=== PATIENT | male | born 1945 | race Caucasian/White ===

== ENCOUNTER 2021-07-18 09:11 | Day surgery (SDC) | payer MEDICARE, OTHER, SELFPAY ==
[2021-07-18] VITALS (7 sets, daily range): BP systolic 78–130; BP diastolic 47–114; PULSE 50–65; RESP 14–16; TEMP 35.7–36.8; O2SAT 98–100; BMI 25.6
--- NOTE | 2021-07-18 09:48 | HP.PCM_ITS ---
History and Physical Date of Admission: 07/18/21 75 M who presents to the office today for further evaluation of abdominal pain. He has been having abdominal pain intermittently over the last several years. Initially was thought to be secondary to gastritis as he was treated with omeprazole and dicyclomine therapy. His daily usage of dicyclomine is once a day at this time. He weaned himself off of omeprazole. He does take Xanax 0.25 mg twice a day for possible anxiety associated with with his abdominal pain. He does also admit to drinking couple beers a day. He does not take any Xanax with his alcohol consumption. He does not think he has a problem with alcohol. His weight has been stable. He does have history of adenomatous polyps and would like to get a colonoscopy. He denies any chest pain or shortness of breath. He has no family history of any GI related malignancies. Referred by PCP. For many years he has been having issues with generalized abdominal pain that occurs intermittently and suddenly noted to be sharp and lasts for many hours. Feels he has more issues during the winter. Previously told he has sludge in his gallbladder. Reports anxiety and panic attacks originally occurring 3-4 times a day, taking 0.25mg Xanax twice a day. When he takes Xanax pain goes away. PCP also given omeprazole and dicyclomine which he finds helpful. States that if he drinks a beer he feels better. Drinks thee beers a day as a daily average with most being 5. Denies being told he has issues with his pancreas and liver. ROS Gastro GI: Positive for abdominal pain Exam Const General: cooperative and comfortable Nutritional Appearance: average body habitus and well nourished [facility] Head: normal to inspection Ears: hearing grossly normal bilaterally Nose: external nose normal Face and sinus: normal facial exam Mouth: oral mucosae normal Throat: posterior oropharynx normal Eyes General: appearance normal, both eyes and all related structures Neck Neck: normal visual inspection Chest Chest palpation & inspection: normal inspection of the chest and normal palpation of entire chest wall Resp Effort & Inspection: normal respiratory effort Auscultation: Bilateral: Clear to Auscultation Cardio Palpation: normal PMI Rate: regular rate Rhythm: regular rhythm GI Inspection: normal to inspection Auscultation: normal bowel sounds Percussion: normal to percussion Palpation: no hepatosplenomegaly Skin General: no rashes or lesions noted Neuro General: patient alert Extrem General: normal to inspection Psych Affect: normal affect Assessment and Plan Assessment and Plan (1) Abdominal pain: Status: Acute Plan: Patient will undergo an upper endoscopy to evaluate his upper GI tract. He will also get a CT scan abdomen pelvis to look for signs of chronic pancreatitis. He was explained alternatives, risk, benefits including not withstanding bleeding, infection, sepsis, perforation, need for emergency or . He will have a ASA 1 (2) Personal history of colonic polyps: Status: Acute Plan: Patient will undergo colonoscopy when he has his upper endoscopy. He was explained alternatives, risk, benefits including not withstanding bleeding, infection, sepsis, perforation, need for emergent radiotherapy with an ASA of 1. I have re-examined the patient. There are no clinical changes since date of exam.
--- NOTE | 2021-07-18 10:30 | IMM_PTH ---
PATIENT: LARRY AUSTIN LOC: EN U#:[id number] AGE/SX: 75/M ROOM: RE07/18/[address]: Dr. Neri Wolff DO : 1945 BED: DIS: 07/18/2021 SPEC #: [id number] RECD: 07/18/21 13:32 STATUS: GUSTAVO REMg #: [id number] APOLONIA: 07/18/21 10:[address]: Neri Wolff DEPT: IMMUNOHISTOCHEMISTRY RECD BY: Milly Holley ENTERED: 07/18/21 13:33 SP TYPE: IMMUNO OTHR DR: Dr. Curtis Jara MD Tissues: B - Stomach, NOS C - Esophagus, NOS Procedures: H Pylori (initial) P53 (initial) KI-67 (add) PHYSICIAN & INSTITUTION [place] [id number] SPECIMEN INFORMATION: Tissue Source: B ? Gastric antrum, C ? Distal esophagus Clinical Info: History of colonic polyps Specimen Number: [id number] B & C CPT code: 56414 x2, 65460 METHODOLOGY: Deparaffinized sections of prefer/formalin-fixed tissue or PAP/DQ stained slides are incubated with monoclonal/polyclonal antibodies/oligonucleotide probes. Localization is made via biotin free immunoperoxidase method. Appropriate controls are performed and reacted as expected. Results on target cell population are indicated in the following table: RESULTS: ANTIBODY / CLONE RESULT Block B H Pylori (polyclonal) negative Block C P53 (DO-7) Ki-67 (30-9) These tests were developed and their performance characteristics determined by [facility]. They may not have been cleared or approved by the U.S. Food and Drug Administration. The FDA has determined that such clearance or approval is not necessary. The above immunohistochemical/dualISH markers are ordered and reviewed by the Pathologist. INTERPRETATION: B. Gastric antrum, biopsy: Negative for Helicobacter pylori organisms. C. Distal esophagus, biopsy: AM:zoila 07/19/2021
--- NOTE | 2021-07-18 10:30 | IMM_PTH ---
PATIENT: LARRY AUSTIN LOC: EN U#:[id number] AGE/SX: 75/M ROOM: RE07/18/[address]: Dr. Neri Wolff DO : 1945 BED: DIS: 07/18/2021 SPEC #: [id number] RECD: 07/18/21 13:32 STATUS: GUSTAVO REMg #: [id number] APOLONIA: 07/18/21 10:[address]: Neri Wolff DEPT: IMMUNOHISTOCHEMISTRY RECD BY: Milly Holley ENTERED: 07/18/21 13:33 SP TYPE: IMMUNO OTHR DR: Dr. Curtis Jara MD Tissues: B - Stomach, NOS C - Esophagus, NOS Procedures: H Pylori (initial) P53 (initial) KI-67 (add) PHYSICIAN & INSTITUTION [place] [id number] SPECIMEN INFORMATION: Tissue Source: B ? Gastric antrum, C ? Distal esophagus Clinical Info: History of colonic polyps Specimen Number: [id number] B & C CPT code: 92930 x2, 47887 METHODOLOGY: Deparaffinized sections of prefer/formalin-fixed tissue or PAP/DQ stained slides are incubated with monoclonal/polyclonal antibodies/oligonucleotide probes. Localization is made via biotin free immunoperoxidase method. Appropriate controls are performed and reacted as expected. Results on target cell population are indicated in the following table: RESULTS: ANTIBODY / CLONE RESULT Block B H Pylori (polyclonal) negative Block C P53 (DO-7) negative Ki-67 (30-9) positive, low These tests were developed and their performance characteristics determined by [facility]. They may not have been cleared or approved by the U.S. Food and Drug Administration. The FDA has determined that such clearance or approval is not necessary. The above immunohistochemical/dualISH markers are ordered and reviewed by the Pathologist. INTERPRETATION: B. Gastric antrum, biopsy: Negative for Helicobacter pylori organisms. C. Distal esophagus, biopsy: No evidence of dysplasia. AM:zoila 07/20/2021
--- NOTE | 2021-07-18 10:30 | EGD_PTH ---
PATIENT: LARRY AUSTIN LOC: EN U#:[id number] AGE/SX: 75/M ROOM: RE07/18/[address]: Dr. Neri Wolff DO : 1945 BED: DIS: 07/18/2021 SPEC #: [id number] RECD: 07/18/21 12:46 STATUS: GUSTAVO REMg #: [id number] APOLONIA: 07/18/21 10:[address]: Neri Wolff DEPT: SURGICAL PATHOLOGY RECD BY: Dora Garcia ENTERED: 07/18/21 13:09 SP TYPE: EGD BIOPSY [facility] DR: Dr. Curtis Jara MD Tissues: A - Duodenum, NOS B - Gastric mucous membrane C - Esophagus, NOS D - Rectum, NOS Procedures: Surgery Specimen Level IV HEADER OPERATION: Colonoscopy, EGD ([facility]) PRE-OP DIAGNOSIS: History of colonic polyps TISSUE SUBMITTED: A ? Duodenal biopsy, B ? Gastric antrum biopsy, C ? Distal esophagus biopsy, D ? Rectal polyp MICROSCOPIC DIAGNOSIS A. Duodenum, biopsy: No pathologic change. B. Gastric antrum, biopsy: Chronic gastritis. C. Distal esophagus, biopsy: Gastroesophageal junctional mucosa with mild chronic inflammation and focal goblet cell metaplasia. No evidence of dysplasia. See comment. D. Rectal polyp, biopsy: Hyperplastic polyp. AM:zoila 07/19/2021 COMMENT B. The results of immunohistochemistry for Helicobacter pylori will be reported separately ([id number]). C. Immunohistochemistry ([id number]) for P53 and Ki-67 will be performed and results will be reported separately. MICROSCOPIC DESCRIPTION Slides are reviewed. GROSS DESCRIPTION A - Received in fixative is one container labeled with the patient's name and designated duodenal biopsy. The specimen consists of multiple irregular fragments of light brown soft tissue that in aggregate measure 1.2 x 0.4 x 0.1 cm. The specimen is totally submitted in one cassette. B - Received in fixative is one container labeled with the patient's name and designated gastric antrum biopsy. The specimen consists of two irregular fragments of light brown soft tissue that in aggregate measure 0.6 x 0.3 x 0.1 cm. The specimen is totally submitted in one cassette. C - Received in fixative is one container labeled with the patient's name and designated distal esophagus biopsy. The specimen consists of multiple irregular fragments of light brown soft tissue that in aggregate measure 0.5 x 0.3 x 0.1 cm. The specimen is totally submitted in one cassette. D - Received in fixative is one container labeled with the patient's name and designated rectal polyp. The specimen consists of two irregular fragments of light brown soft tissue that in aggregate measure 0.4 x 0.3 x 0.1 cm. The specimen is totally submitted in one cassette. / SJ:rg 07/18/2021 TC:3 CPT: 64402 x4
[2021-07-18] MEDS: Lactated Ringers 1,000 ML 15 ML IV (10:39)
--- NOTE | 2021-07-18 11:02 | OP.EGD_ITS ---
Patient Name: Andrés Johnson Procedure Date: 07/18/2021 10:06 AM Date of : 1945 Age: 75 Procedure: Upper GI endoscopy Indications: Epigastric abdominal pain Providers: Neri Wolff DO Medicines: See the Anesthesia note for documentation of the administered medications Patient Profile: This is a 75 year old male. Refer to note in patient chart for documentation of history and physical. Patient has symptoms. Complications: No immediate complications. Procedure: Pre-Anesthesia Assessment: - Prior to the procedure, a History and Physical was performed, and patient medications and allergies were reviewed. The patient is competent. The risks and benefits of the procedure and the sedation options and risks were discussed with the patient. All questions were answered and informed consent was obtained. Patient identification and proposed procedure were verified by the physician in the pre-procedure area. Mental Status Examination: alert and oriented. Airway Examination: normal oropharyngeal airway and neck mobility. Respiratory Examination: clear to auscultation. CV Examination: normal. Prophylactic Antibiotics: The patient does not require prophylactic antibiotics. Prior Anticoagulants: The patient has taken no previous anticoagulant or antiplatelet agents. After reviewing the risks and benefits, the patient was deemed in satisfactory condition to undergo the procedure. The anesthesia plan was to use moderate sedation / analgesia (conscious sedation). Immediately prior to administration of medications, the patient was re-assessed for adequacy to receive sedatives. The heart rate, respiratory rate, oxygen saturations, blood pressure, adequacy of pulmonary ventilation, and response to care were monitored throughout the procedure. The physical status of the patient was re-assessed after the procedure. After obtaining informed consent, the endoscope was passed under direct vision. Throughout the procedure, the patient's blood pressure, pulse, and oxygen saturations were monitored continuously. The Colonoscope was introduced through the mouth, and advanced to the second part of duodenum. The upper GI endoscopy was accomplished without difficulty. The patient tolerated the procedure well. Moderate Sedation: Moderate (conscious) sedation was administered by the endoscopy nurse and supervised by the endoscopist. The following parameters were monitored: oxygen saturation, heart rate, blood pressure, and response to care. Total physician intraservice time was 15 minutes. Scope In: 10:20:17 AM Scope Out: 10:27:18 AM Total Procedure Duration Time 0 hours 7 minutes 1 second Findings: LA Grade A (one or more mucosal breaks less than 5 mm, not extending between tops of 2 mucosal folds) esophagitis with no bleeding was found 38 to 40 cm from the incisors. Biopsies were taken with a cold forceps for histology. Verification of patient identification for the specimen was done. Estimated blood loss was minimal. 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 Patchy mildly erythematous mucosa without bleeding was found in the gastric antrum. Biopsies were taken with a cold forceps for histology. Verification of patient identification for the specimen was done. Estimated blood loss was minimal. Patchy mildly erythematous mucosa without active bleeding and with no stigmata of bleeding was found in the first portion of the duodenum. Biopsies were taken with a cold forceps for histology. Verification of patient identification for the specimen was done. Estimated blood loss was minimal. Impression: - LA Grade A reflux esophagitis. Biopsied. - Erythematous mucosa in the antrum. Biopsied. - Erythematous duodenopathy. Biopsied. Recommendation: - Discharge patient to home. - Resume previous diet. - Continue present medications. - Await pathology results. Procedure Code(s): --- Professional --- 55068, Esophagogastroduodenoscopy, flexible, transoral; with biopsy, single or multiple 62195, 59, Moderate sedation services provided by the same physician or other qualified health managed care nurse performing the diagnostic or therapeutic service that the sedation supports, requiring the presence of an independent trained observer to assist in the monitoring of the patient's level of consciousness and physiological status; initial 15 minutes of intraservice time, patient age 5 years or older CPT copyright 2017 [employer]. All rights reserved. The codes documented in this report are preliminary and upon medical billing coder review may be revised to meet current compliance requirements. Neri Wolff DO 07/18/2021 11:01:43 AM This report has been signed electronically. Number of Addenda: 1 Note Initiated On: 07/18/2021 10:06 AM Addendum Number: 1 Addendum Date: 01/05/2022 6:40:59 AM MAC was used as sedation for this procedure. Neri Wolff DO 01/05/2022 6:41:06 AM This report has been signed electronically.
--- NOTE | 2021-07-18 11:05 | OP.COLON_ITS ---
Patient Name: Andrés Johnson Procedure Date: 07/18/2021 10:27 AM Date of : 1945 Age: 75 Procedure: Colonoscopy Indications: Follow-up for history of adenomatous polyps in the colon Providers: Neri Wolff DO Medicines: See the Anesthesia note for documentation of the administered medications Patient Profile: This is a 75 year old male. Refer to note in patient chart for documentation of history and physical. Patient has symptoms. Last Colonoscopy: 5 years ago. Complications: No immediate complications. Procedure: Pre-Anesthesia Assessment: - Prior to the procedure, a History and Physical was performed, and patient medications and allergies were reviewed. The patient is competent. The risks and benefits of the procedure and the sedation options and risks were discussed with the patient. All questions were answered and informed consent was obtained. Patient identification and proposed procedure were verified by the physician in the pre-procedure area. Mental Status Examination: alert and oriented. Airway Examination: normal oropharyngeal airway and neck mobility. Respiratory Examination: clear to auscultation. CV Examination: normal. Prophylactic Antibiotics: The patient does not require prophylactic antibiotics. Prior Anticoagulants: The patient has taken no previous anticoagulant or antiplatelet agents. After reviewing the risks and benefits, the patient was deemed in satisfactory condition to undergo the procedure. The anesthesia plan was to use moderate sedation / analgesia (conscious sedation). Immediately prior to administration of medications, the patient was re-assessed for adequacy to receive sedatives. The heart rate, respiratory rate, oxygen saturations, blood pressure, adequacy of pulmonary ventilation, and response to care were monitored throughout the procedure. The physical status of the patient was re-assessed after the procedure. After I obtained informed consent, the scope was passed under direct vision. Throughout the procedure, the patient's blood pressure, pulse, and oxygen saturations were monitored continuously. The Colonoscope was introduced through the anus and advanced to the cecum, identified by appendiceal orifice and ileocecal valve. The colonoscopy was performed without difficulty. The patient tolerated the procedure well. The quality of the bowel preparation was good. Moderate Sedation: Moderate (conscious) sedation was administered by the endoscopy nurse and supervised by the endoscopist. The patient's oxygen saturation, heart rate, blood pressure and response to care were monitored. Total physician intraservice time was 15 minutes. Scope In: 10:30:46 AM Scope Withdrawal Time 0 hours 14 minutes 56 seconds Scope Out: 10:57:24 AM Total Procedure Duration Time 0 hours 26 minutes 38 seconds Findings: The perianal and digital rectal examinations were normal. A 4 mm polyp was found in the rectum. The polyp was sessile. The polyp was removed with a cold biopsy forceps. Resection and retrieval were complete. Verification of patient identification for the specimen was done. Estimated blood loss was minimal. A few small-mouthed diverticula were found in the recto-sigmoid colon and sigmoid colon. The exam was otherwise without abnormality on direct and retroflexion views. The was grade 1 internal hemorrhoids seen on retroflexion in the rectum. Impression: - One 4 mm polyp in the rectum, removed with a cold biopsy forceps. Resected and retrieved. - Diverticulosis in the recto-sigmoid colon and in the sigmoid colon. - The examination was otherwise normal on direct and retroflexion views. -Grade 1 internal hemorrhoids Recommendation: - Discharge patient to home. - Resume previous diet. - Continue present medications. - Await pathology results. - Repeat colonoscopy in 5 years for surveillance. - Return to GI office in 1 week. Procedure Code(s): --- Professional --- 17832, Colonoscopy, flexible; with biopsy, single or multiple 73577, 59, Moderate sedation services provided by the same physician or other qualified health animal care taker performing the diagnostic or therapeutic service that the sedation supports, requiring the presence of an independent trained observer to assist in the monitoring of the patient's level of consciousness and physiological status; initial 15 minutes of intraservice time, patient age 5 years or older CPT copyright 2017 [employer]. All rights reserved. The codes documented in this report are preliminary and upon dredge captain review may be revised to meet current compliance requirements. Neri Wolff DO 07/18/2021 11:05:02 AM This report has been signed electronically. Number of Addenda: 1 Note Initiated On: 07/18/2021 10:27 AM Addendum Number: 1 Addendum Date: 01/05/2022 6:41:15 AM MAC was used as sedation for this procedure. Neri Wolff DO 01/05/2022 6:41:19 AM This report has been signed electronically.
== END 2021-07-18 23:59 | disposition home or self-care (01) ==
LOC: EN 09:22 → AC 09:22
PROVIDERS: PCP Family Medicine; Referring Provider Internal Medicine Gastroenterology; Visit Provider Internal Medicine Gastroenterology
PROC: 0DJD8ZZ Inspection of Lower Intestinal Tract, Via Natural or Artificial Opening Endoscopic (ICD-10-PCS; CPT 45378; principal; 2021-07-18 10:25)
DX: K29.50 Unspecified chronic gastritis without bleeding (principal); K57.30 Diverticulosis of large intestine without perforation or abscess without bleeding; K21.00 Gastro-esophageal reflux disease with esophagitis, without bleeding; Z90.49 Acquired absence of other specified parts of digestive tract; K62.1 Rectal polyp; K64.0 First degree hemorrhoids; Z86.010 Personal history of colon polyps; F41.9 Anxiety disorder, unspecified; F32.A Depression, unspecified; G25.81 Restless legs syndrome; M19.90 Unspecified osteoarthritis, unspecified site; Z79.899 Other long term (current) drug therapy
CPT/HCPCS: 45380; 43239; 88305; 88341; 88342; J7120; J2405

== ENCOUNTER 2022-09-21 05:32 | Day surgery (SDC) | payer MEDICARE, OTHER, SELFPAY ==
[2022-09-21 06:01] VITALS: BP 141/79; PULSE 57; RESP 16; TEMP 36.1; O2SAT 100; BMI 25.9
[2022-09-21] MEDS: Lactated Ringers 1,000 ML 15 ML IV (06:14)
--- NOTE | 2022-09-21 07:00 | IMM_PTH ---
PATIENT: LARRY AUSTIN LOC: EN U#:[id number] AGE/SX: 76/M ROOM: RE09/21/[address]: Dr. Neri Wolff DO : 1945 BED: DIS: 09/21/2022 SPEC #: [id number] RECD: 09/21/22 12:18 STATUS: GUSTAVO REQ #: [id number] APOLONIA: 09/21/22 07:[address]: Neri Wolff DEPT: IMMUNOHISTOCHEMISTRY RECD BY: Milly Holley ENTERED: 09/21/22 12:18 SP TYPE: IMMUNO OTHR DR: Dr. Curtis Jara MD Tissues: B - Stomach, NOS Procedures: H Pylori (initial) PHYSICIAN & INSTITUTION [address] [id number] SPECIMEN INFORMATION: Tissue Source: B ? 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 Localization is made via biotin free immunoperoxidase method. Appropriate controls are performed and reacted as expected. Results on target cell population are indicated in the following table: RESULTS: ANTIBODY / CLONE RESULT Block B H Pylori (polyclonal) negative These tests were developed and their performance characteristics determined by [facility]. They may not have been cleared or approved by the U.S. Food and Drug Administration. The FDA has determined that such clearance or approval is not necessary. The above immunohistochemical/dualISH markers are ordered and reviewed by the Pathologist. INTERPRETATION: B. Gastric pylorus, biopsy: Negative for Helicobacter pylori organisms. SJ:zoila 09/22/2022
--- NOTE | 2022-09-21 07:00 | EGD_PTH ---
PATIENT: LARRY AUSTIN LOC: EN U#:[id number] AGE/SX: 76/M ROOM: RE09/21/[address]: Dr. Neri Wolff DO : 1945 BED: DIS: 09/21/2022 SPEC #: [id number] RECD: 09/21/22 09:43 STATUS: GUSTAVO REMg #: [id number] APOLONIA: 09/21/22 07:[address]: Neri Wolff DEPT: SURGICAL PATHOLOGY RECD BY: Abhijit Pollard ENTERED: 09/21/22 11:27 SP TYPE: EGD BIOPSY EMILY DR: Dr. Curtis Jara MD Tissues: A - Esophagus, NOS B - Pylorus Procedures: Special Stain Group II Surgery Specimen Level IV Alcian Blue/PAS (control) HEADER OPERATION: EGD ([facility]) with biopsies PRE-OP DIAGNOSIS: Hoff?s esophagus, irritable bowel syndrome TISSUE SUBMITTED: A ? Distal esophagus biopsy, B ? Gastric pylorus biopsy MICROSCOPIC DIAGNOSIS A. Distal esophagus, biopsy: Fragments of gastroesophageal mucosa with chronic inflammation. Intestinal metaplasia (goblet cell metaplasia) not identified. See comment. B. Gastric pylorus, biopsy: Mild gastritis. See microscopic description and comment. SJ:rg 09/22/2022 COMMENT A. Alcian blue/PAS stain with matched control is used in the evaluation of the specimen. B. The results of immunohistochemistry for Helicobacter pylori will be reported separately ([id number]). Alcian blue/PAS stain with matched control is used in the evaluation of the specimen. MICROSCOPIC DESCRIPTION Slides are reviewed. The specimen shows fragments of gastric mucosa with chronic inflammatory cell infiltrates in the lamina propria consisting of lymphocytes and plasma cells, consistent with mild chronic gastritis. Focal intestinal metaplasia (goblet cell metaplasia) is also noted. GROSS DESCRIPTION A - Received in fixative is one container labeled with the patient's name and designated distal esophagus. The specimen consists of multiple irregular fragments of light brown soft tissue that in aggregate measure 1.0 x 0.3 x 0.1 cm. The specimen is totally submitted in one cassette. B - Received in fixative is one container labeled with the patient's name and designated gastric pylorus biopsy. The specimen consists of multiple irregular fragments of light brown soft tissue that in aggregate measure 0.8 x 0.6 x 0.1 cm. The specimen is totally submitted in one cassette. / SJ:rg 09/21/2022 TC:3 CPT: 97647 x2, 01213 x2
--- NOTE | 2022-09-21 07:10 | PCM.HP.BLA ---
History and Physical Date of Admission: 09/21/22 LARRY AUSTIN, is a 76 M who presents to the office today for 6 month f/u Hoff's esophagus, IBS. He continues to take pantoprazole 40 mg daily, no adverse effects. His reflux wasn't symptomatic. He had inguinal hernia repair about 2 mos ago, bowels are better since then. He also started taking a refrigerated probiotic daily which also helps his bowels, no further abd pain. He quit snuff. Still drinks beer--about 3 per day. Hoff's esophagus/GERD -- He was identified as having short segment Hoff's esophagus on upper endoscopy 07/2021.?He was treated with pantoprazole 40 mg BID for 2 months and then transitioned to once daily therapy.?No heartburn, acid reflux, dysphagia, nausea, vomiting, abd pain, chest pain.? IBS --? He reports anxiety was causing his abd pain; pt explains the abd pain like a panic attack of the stomach. Dr Wolff had him try cymbalta for intestinal migraine but the med caused constipation and urinary retention so he stopped it after 8 days. Constipation and abd pain managed with daily probiotic. EGD and colonoscopy performed 07.18.21. EGD found LA Grade A reflux esophagitis; erythematous duodenopathy and antrum mucosa. Biopsy found gastritis; GE Junction inflammation with metaplasia and Ki-67 positive, no dysplasia. H.Pylori negative. Colonoscopy found one 4mm tubular adenoma polyp in rectum; diverticulosis of RS and sigmoid colons; Grade 1 internal hemorrhoids. Surveillance colonoscopy due 07/2026. ROS Const Constitutional: Positive for weight change; No fatigue ENT ENT: No difficulty swallowing Gastro GI: Positive for abdominal pain and nausea/dyspepsia; No belching, bloating, change in bowel habits, change in stool character, coffee ground emesis, constipation, cramping, diarrhea, heartburn, difficulty swallowing, feeling full early, excessive flatus, incontinent of stools, Vomiting blood/hematemesis, Blood in stool, loose stools, Black,tarry stools, pain with swallowing, vomiting or other Musc Musculoskeletal: Positive for joint pain, back pain, numbness, stiffness, tingling and Arthritis Skin Skin: No yellowing of the eye or itchy eyes Neuro Neurology: Positive for numbness and tingling Psych Psychiatric: Positive for anxiety and No depression Endo Endocrine: Positive for weight change; No fatigue Aller/Imm Allergy/Immunologic: No itchy eyes New/Lymp Hematologic/Lymphatic: No easy bleeding or easy bruising Exam Const General: cooperative, healthy appearing and comfortable Orientation: alert, awake and oriented x3 Quality Reporting Tobacco Screening ([facility] 138) Smoking Status: Current every day smoker Assessment and Plan Assessment and Plan (1) Barretts esophagus: ?Status:?Acute ?Plan: No GI complaints at this time Continue pantoprazole 40 mg QAM Update EGD to reeval Hoff's in 07/2022, w/ office f/u 2 wks later (2) IBS (irritable bowel syndrome): ?Status:?Acute ?Plan: Well controlled with daily refrigerated probiotic He quit snuff! ? ? ? Medications: Refilled pantoprazole 40 mg? PO DAILY 90 tabs 3RF ? ? Discontinued duloxetine ?? Discontinued Reason:? Pt no longer taking 20 mg? PO HS 30 caps 3RF ? ?
[2022-09-21 07:27] VITALS: BP 109/82; BP 141/79; PULSE 73; RESP 18; TEMP 36.3; O2SAT 96
--- NOTE | 2022-09-21 07:29 | OP.EGD_ITS ---
Patient Name: Andrés Johnson Procedure Date: 09/21/2022 7:13 AM Date of : 1945 Age: 76 Procedure: Upper GI endoscopy Indications: Heartburn, Follow-up of Hoff's esophagus Providers: Neri Wolff DO Medicines: Monitored Anesthesia Care Patient Profile: This is a 76 year old male. Refer to note in patient chart for documentation of history and physical. Patient has symptoms of chronic heartburn. Complications: No immediate complications. Procedure: Pre-Anesthesia Assessment: - Prior to the procedure, a History and Physical was performed, and patient medications and allergies were reviewed. The risks and benefits of the procedure and the sedation options and risks were discussed with the patient. All questions were answered and informed consent was obtained. Patient identification and proposed procedure were verified by the physician in the pre-procedure area. Mental Status Examination: alert and oriented. Airway Examination: normal oropharyngeal airway and neck mobility. Respiratory Examination: clear to auscultation. CV Examination: normal. Prophylactic Antibiotics: The patient does not require prophylactic antibiotics. Prior Anticoagulants: The patient has taken no previous anticoagulant or antiplatelet agents. ASA Grade Assessment: II - A patient with mild systemic disease. After reviewing the risks and benefits, the patient was deemed in satisfactory condition to undergo the procedure. The anesthesia plan was to use monitored anesthesia care (MAC). Immediately prior to administration of medications, the patient was re-assessed for adequacy to receive sedatives. The heart rate, respiratory rate, oxygen saturations, blood pressure, adequacy of pulmonary ventilation, and response to care were monitored throughout the procedure. The physical status of the patient was re-assessed after the procedure. After obtaining informed consent, the endoscope was passed under direct vision. Throughout the procedure, the patient's blood pressure, pulse, and oxygen saturations were monitored continuously. The Endoscope was introduced through the mouth, and advanced to the second part of duodenum. The upper GI endoscopy was accomplished without difficulty. The patient tolerated the procedure well. Scope In: 7:19:12 AM Scope Out: 7:22:46 AM Total Procedure Duration Time 0 hours 3 minutes 34 seconds Findings: The Z-line was irregular and was found 40 cm from the incisors. Biopsies were taken with a cold forceps for histology. Verification of patient identification for the specimen was done. Estimated blood loss was minimal. Patchy mild inflammation characterized by erosions and erythema was found at the pylorus. Biopsies were taken with a cold forceps for histology. Verification of patient identification for the specimen was done. Estimated blood loss was minimal. The first portion of the duodenum was normal. Impression: - Z-line irregular, 40 cm from the incisors. Biopsied. - Chronic gastritis. Biopsied. - Normal first portion of the duodenum. Recommendation: - Discharge patient to home. - Resume previous diet. - Continue present medications. - Await pathology results. Procedure Code(s): --- Professional --- 97140, Esophagogastroduodenoscopy, flexible, transoral; with biopsy, single or multiple CPT copyright 2017 [employer]. All rights reserved. The codes documented in this report are preliminary and upon tire maker review may be revised to meet current compliance requirements. Neri Wolff DO 09/21/2022 7:29:30 AM This report has been signed electronically. Number of Addenda: 0 Note Initiated On: 09/21/2022 7:13 AM
[2022-09-21 07:30] VITALS: BP 116/73; BP 141/79; PULSE 69; RESP 18; O2SAT 95
--- NOTE | 2022-09-21 07:30 | OP.CCLET_ITS ---
09/21/2022 Curtis Jara Re : Upper GI endoscopy procedure for Andrés Boone Marek This procedure was performed on September. My impressions and recommendations are as follows: Impressions : - Z-line irregular, 40 cm from the incisors. Biopsied. - Chronic gastritis. Biopsied. - Normal first portion of the duodenum. Recommendations : - Discharge patient to home. - Resume previous diet. - Continue present medications. - Await pathology results. My findings are described in the full procedure note, which is enclosed. If I can be of further assistance, please feel free to contact me at . Sincerely, Neri Wolff, 09/21/2022 7:29:30 AM This report has been signed electronically.
[2022-09-21 07:35] VITALS: BP 113/82; BP 141/79; PULSE 72; RESP 18; O2SAT 98
[2022-09-21 07:40] VITALS: BP 117/79; BP 141/79; PULSE 62; RESP 18; TEMP 36.4; O2SAT 97
[2022-09-21 08:06] VITALS: BP 141/79
== END 2022-09-21 08:09 | disposition home or self-care (01) ==
LOC: EN 05:32 → AC 05:33
PROVIDERS: PCP Family Medicine; Referring Provider Family Medicine; Visit Provider Internal Medicine Gastroenterology
PROC: 0DJ08ZZ Inspection of Upper Intestinal Tract, Via Natural or Artificial Opening Endoscopic (ICD-10-PCS; CPT 43235; principal; 2022-09-21 06:55)
DX: K22.70 Barrett's esophagus without dysplasia (principal); K29.50 Unspecified chronic gastritis without bleeding; R12 Heartburn; K58.9 Irritable bowel syndrome, unspecified; F17.200 Nicotine dependence, unspecified, uncomplicated
CPT/HCPCS: 43239; 88305; 88313; 88342; J7120; J2405